=== PATIENT | male | born 1980 | race Caucasian/White ===

== ENCOUNTER 2018-08-01 08:47 | Emergency (ER) | payer MEDICAID ==
[~2018-08-01] VITALS: Ht 152.4 cm; Wt 54.1 kg
[~2018-08-01 08:47] MED LIST: [UNRECOGNIZED DRUG - REMARK]
[2018-08-01 09:07] VITALS: BP 141/76
--- NOTE | 2018-08-01 09:10 | NUR ---
37Y/M BIB C/O DIZZINESS, NAUSEA, GEN BODY ACHE X THIS MORNING; DENIES VOMITING OR DIARRHEA; PT IS AAOX4; EVEN AND STEADY GAIT; VSS; BED DOWN; ER MD AWARE AND NOTIFIED OF PT STATUS. HX; DM RX; DENIES
[2018-08-01] MEDS ORDERED: KETOROLAC 30 MG/ML VIAL IVP ONE (09:50)
[2018-08-01] MEDS ORDERED: NACL 0.9% 1,000 ML IV SCH (09:50)
[2018-08-01] MEDS ORDERED: MECLIZINE 25 MG TAB PO ONE (09:50)
--- NOTE | 2018-08-01 09:50 | NUR ---
RAD AT BEDSIDE
--- NOTE | 2018-08-01 09:54 | NUR ---
Patient being evaluated by physician at bedside.
--- NOTE | 2018-08-01 10:08 | NUR ---
LAB AT BEDSIDE
--- NOTE | 2018-08-01 10:14 | NUR ---
labs collected at iv start and handed to nael sigala
[2018-08-01 10:35] LABS: BASOPHILS % (AUTO) 0.2 % (0.0-2.0); EOSINOPHILS # (AUTO) 0.1 K/uL (0-0.4); EOSINOPHILS % (AUTO) 1.9 % (0.0-4.0); HEMATOCRIT 47.4 % (36-52); HEMOGLOBIN 16.1 g/dL (12.0-18.0); LYMPHOCYTES # (AUTO) 1.9 K/uL (2.0-11.5); LYMPHOCYTES % (AUTO) 24.3 % (20.5-51.1); MEAN CORPUSCULAR HEMOGLOBIN 31 pg (27-31); MEAN CORPUSCULAR HGB CONC 34 g/dL (33-37); MEAN CORPUSCULAR VOLUME 91.4 fL (80-94); MONOCYTES # (AUTO) 0.4 K/uL (0.8-1.0); MONOCYTES % (AUTO) 5.6 % (1.7-9.3); NEUTROPHILS # (AUTO) 5.2 K/uL (1.8-7.7); PLATELET COUNT (AUTO) 166 K/uL (140-450); RED BLOOD CELL COUNT(AUTO) 5.18 MIL/uL (4.20-6.10); RED CELL DISTRIBUTION WIDTH 12.4 % (11.6-13.7); WHITE BLOOD COUNT (AUTO) 7.7 K/uL (4.8-10.8)
[2018-08-01 10:39] LABS: APPEARANCE,URINE CLEAR (CLEAR); BILIRUBIN,URINE NEGATIVE (NEGATIVE); BLOOD, URINE NEGATIVE (NEGATIVE); COLOR,URINE YELLOW (YELLOW); LEUKOCYTE ESTERASE ,URINE NEGATIVE (NEGATIVE); NITRITE, URINE NEGATIVE (NEGATIVE); UGLUCOSE 3+ (NEGATIVE)
[2018-08-01 10:52] LABS: ANION GAP 11.5 (8-16); CARBON DIOXIDE 27.6 mmol/L (21-32); CREATININE 0.7 mg/dL (0.7-1.3); POTASSIUM 4.1 mmol/L (3.5-5.1)
[2018-08-01 10:58] LABS: TOTAL BILIRUBIN 0.5 mg/dL (0.0-1.0)
[2018-08-01 11:06] LABS: RBC,URINE 0-5 (RARE) /HPF (0-5); WBC,URINE 0-5 (RARE) /HPF (0-5)
[2018-08-01 12:48] VITALS: BP 135/70
--- NOTE | 2018-08-01 12:48 | NUR ---
Patient discharged with v/s stable. Written and verbal after care instructions given and explained. Patient alert, oriented and verbalized understanding of instructions. Ambulatory with steady gait. All questions addressed prior to discharge. ID band removed. Patient advised to follow up with PMD. Rx of METFORMON, MOTRIN, MECLIZINE given. Patient educated on indication of medication including possible reaction and side effects. Opportunity to ask questions provided and answered.
== END 2018-08-01 12:48 | disposition home or self-care (01) ==
LOC: MED 08:47
DX: E11.65 Type 2 diabetes mellitus with hyperglycemia (principal); R42 Dizziness and giddiness; F17.200 Nicotine dependence, unspecified, uncomplicated; Z88.0 Allergy status to penicillin
CPT/HCPCS: 36415; 71045; 80053; 81001; 84484; 85025; 96361; 96374; 99285; J1885; J7030; J8597; Q0092

== ENCOUNTER 2018-08-23 10:58 | Emergency (ER) | payer MEDICAID ==
[~2018-08-23] VITALS: Ht 157.5 cm; Wt 55.3 kg
[2018-08-23 11:11] VITALS: BP 109/83
--- NOTE | 2018-08-23 11:22 | NUR ---
PT AMB TO BED 8. REPORTED GIVEN TO SERVANDO BELTRÁN.
--- NOTE | 2018-08-23 11:23 | NUR ---
PATIENT PRESENTS TO ED WITH C/O N/V & HEADACHE X 10 DAYS. PATIENT STATES PAIN OF 10/10 AT THIS TIME; VSS; PATIENT POSITIONED FOR COMFORT; HOB ELEVATED; BEDRAILS UP X2; BED DOWN. ER MD MADE AWARE OF PT STATUS.
[2018-08-23] MEDS ORDERED: ONDANSETRON 4 MG ODT PO ONE (11:45)
[2018-08-23] MEDS ORDERED: KETOROLAC 60 MG/2 ML VIAL IM ONE (11:45)
[2018-08-23 12:59] VITALS: BP 112/85
--- NOTE | 2018-08-23 13:00 | NUR ---
Patient discharged with v/s stable. Written and verbal after care instructions given and explained. Patient alert, oriented and verbalized understanding of instructions. Ambulatory with steady gait. All questions addressed prior to discharge. ID band removed. Patient advised to follow up with PMD. Rx of ZOFRAN, NORCO, NAPROXEN, TAMIFLU given. Patient educated on indication of medication including possible reaction and side effects. Opportunity to ask questions provided and answered.
== END 2018-08-23 13:01 | disposition home or self-care (01) ==
LOC: MED 10:58
DX: B34.9 Viral infection, unspecified (principal); E11.9 Type 2 diabetes mellitus without complications; Z88.0 Allergy status to penicillin; F17.200 Nicotine dependence, unspecified, uncomplicated
CPT/HCPCS: 36415; 82948; 87804; 96372; 99284; J1885; Q0162

== ENCOUNTER 2019-06-20 10:36 | Emergency (ER) | payer MEDICAID ==
[~2019-06-20] VITALS: Ht 154.9 cm; Wt 54.2 kg
[2019-06-20 10:46] VITALS: BP 98/69
[2019-06-20] MEDS ORDERED: METF500T2 PO (10:51)
--- NOTE | 2019-06-20 11:11 | NUR ---
PT PRESENTS TO ED WITH C/O RIGHT SIDED KRUGER X 0700. DENIES NAUSEA/VOMITIING, NO DIZZINESS. DENIES VISUAL CHANGES. SPEECH IS CLEAR. PUPILS EQUAL AND REACTIVE TO LIGHT BILATERALLY. NO FACIAL DROOP NOTED. NO SMILE DEFICIT NOTED. PT IS ALERT AND ORIENTED TO PERSON, PLACE, TIME AND EVENT. BILATERAL HAND ACTIVITIES AIDE EQUAL. BILATERAL FOOT PUSH EQUAL. VSS. BED LOCKED AND IN LOWEST POSITION. ERMD TO EVALUATE PT.
[2019-06-20 12:12] LABS: BASOPHILS % (AUTO) 0.2 % (0.0-2.0); EOSINOPHILS # (AUTO) 0.2 K/uL (0-0.4); EOSINOPHILS % (AUTO) 1.2 % (0.0-4.0); HEMATOCRIT 47.9 % (36-52); HEMOGLOBIN 16.5 g/dL (12.0-18.0); LYMPHOCYTES % (AUTO) 15.5 % (20.5-51.1); MEAN CORPUSCULAR HEMOGLOBIN 31 pg (27-31); MEAN CORPUSCULAR HGB CONC 34 g/dL (33-37); MEAN CORPUSCULAR VOLUME 91.1 fL (80-94); MONOCYTES # (AUTO) 0.5 K/uL (0.8-1.0); MONOCYTES % (AUTO) 3.8 % (1.7-9.3); NEUTROPHILS % (AUTO) 79.3 % (42.2-75.2); PLATELET COUNT (AUTO) 184 K/uL (140-450); RED BLOOD CELL COUNT(AUTO) 5.26 MIL/uL (4.20-6.10); RED CELL DISTRIBUTION WIDTH 12.4 % (11.6-13.7); WHITE BLOOD COUNT (AUTO) 12.6 K/uL (4.8-10.8)
[2019-06-20 12:13] LABS: APPEARANCE,URINE CLEAR (CLEAR); BILIRUBIN,URINE NEGATIVE (NEGATIVE); BLOOD, URINE NEGATIVE (NEGATIVE); COLOR,URINE YELLOW (YELLOW); LEUKOCYTE ESTERASE ,URINE NEGATIVE (NEGATIVE); NITRITE, URINE NEGATIVE (NEGATIVE); UGLUCOSE 3+ (NEGATIVE)
[2019-06-20 12:26] LABS: ANION GAP 13.3 (8-16); CARBON DIOXIDE 26.7 mmol/L (21-32); CREATININE 0.8 mg/dL (0.7-1.3)
[2019-06-20 12:29] LABS: ALBUMIN 3.8 g/dL (3.4-5.0); TOTAL BILIRUBIN 0.4 mg/dL (0.0-1.0)
[2019-06-20] MEDS: NACL 0.9% 1,000 ML IV ONE (12:39)
[2019-06-20] MEDS: KETOROLAC 15 MG/ML VIAL IVP ONE (13:26)
[2019-06-20 13:58] LABS: RBC,URINE NONE SEEN /HPF (0-5); WBC,URINE NONE SEEN /HPF (0-5)
--- NOTE | 2019-06-20 14:24 | NUR ---
Patient discharged with v/s stable. Written and verbal after care instructions given and explained. Patient alert, oriented and verbalized understanding of instructions. Ambulatory with steady gait. All questions addressed prior to discharge. ID band removed. Patient advised to follow up with PMD. Rx of xanax/ naprosyn given. Patient educated on indication of medication including possible reaction and side effects. Opportunity to ask questions provided and answered.
[2019-06-20 14:25] VITALS: BP 94/62
== END 2019-06-20 14:24 | disposition home or self-care (01) ==
LOC: MED 10:36
DX: R51 Headache (principal); E11.65 Type 2 diabetes mellitus with hyperglycemia; F41.9 Anxiety disorder, unspecified; F17.210 Nicotine dependence, cigarettes, uncomplicated; Z88.0 Allergy status to penicillin; Z79.84 Long term (current) use of oral hypoglycemic drugs
CPT/HCPCS: 36415; 70450; 80053; 81001; 82948; 85025; 96361; 96374; 99284; J1885; J7030

== ENCOUNTER 2019-06-24 01:51 | Emergency (ER) | payer MEDICAID ==
[~2019-06-24] VITALS: Ht 154.9 cm; Wt 54.0 kg
[~2019-06-24 01:51] MED LIST changes: +METF500T2 PO
[2019-06-24 01:57] VITALS: BP 123/77
--- NOTE | 2019-06-24 01:59 | NUR ---
TO LOBBY A/W BED , AMBULATORY
--- NOTE | 2019-06-24 03:29 | NUR ---
AMBULATED TO ER BED 10
--- NOTE | 2019-06-24 03:30 | NUR ---
38 Y/O MALE PRESENTS TO ED C/O RIGHT ARM ACHING PAIN 08/10. PT STATES PAIN STARTED YESTERDAY. PT HAS FULL ROM WITH PAIN. BILAT STRONG RADIAL PULSES. PT DENIES TAKING ANY MEDICATIONS TO RELIEVE PAIN. PT VSS. ERMD AWARE. WILL CONTINUE TO MONITOR.
[2019-06-24] MEDS ORDERED: ONDANSETRON 4 MG/2 ML VIAL IVP ONE (03:45)
[2019-06-24] MEDS ORDERED: MORPHINE SULFATE 4 MG/ML SYR IVP ONE (03:45)
[2019-06-24] MEDS ORDERED: NACL 0.9% 1,000 ML IV ONE (03:45)
--- NOTE | 2019-06-24 03:50 | NUR ---
MEDICATED PER ERMDS ORDER , TOLERATED WELL.
[2019-06-24 04:09] LABS: BASOPHILS % (AUTO) 0.4 % (0.0-2.0); EOSINOPHILS # (AUTO) 0.2 K/uL (0-0.4); EOSINOPHILS % (AUTO) 2.1 % (0.0-4.0); HEMATOCRIT 51.9 % (36-52); HEMOGLOBIN 17.9 g/dL (12.0-18.0); LYMPHOCYTES # (AUTO) 1.9 K/uL (2.0-11.5); MEAN CORPUSCULAR HEMOGLOBIN 31 pg (27-31); MEAN CORPUSCULAR HGB CONC 34 g/dL (33-37); MEAN CORPUSCULAR VOLUME 90.9 fL (80-94); MONOCYTES # (AUTO) 0.7 K/uL (0.8-1.0); MONOCYTES % (AUTO) 8.2 % (1.7-9.3); NEUTROPHILS # (AUTO) 5.6 K/uL (1.8-7.7); NEUTROPHILS % (AUTO) 66.3 % (42.2-75.2); PLATELET COUNT (AUTO) 205 K/uL (140-450); RED BLOOD CELL COUNT(AUTO) 5.71 MIL/uL (4.20-6.10); RED CELL DISTRIBUTION WIDTH 12.4 % (11.6-13.7); WHITE BLOOD COUNT (AUTO) 8.5 K/uL (4.8-10.8)
[2019-06-24 04:17] LABS: ANION GAP 16.4 (8-16); CARBON DIOXIDE 26.4 mmol/L (21-32); CREATININE 0.8 mg/dL (0.7-1.3); POTASSIUM 3.8 mmol/L (3.5-5.1)
[2019-06-24 04:31] LABS: TOTAL BILIRUBIN 0.4 mg/dL (0.0-1.0)
[2019-06-24 05:30] VITALS: BP 125/60
--- NOTE | 2019-06-24 05:30 | NUR ---
PT DISCHARGED WITH PAPERWORK. RX NORCO, MOTRIN FOR PAIN. EDUCATED PT REGARDING MEDICATIONS AND S/E. EDUCATED PT REGARDING D/C DIAGNOSIS. PT VERBALIZED UNDERSTANDING OF TEACHING. TOLD PT TO FOLLOW UP WITH PCP AND WHEN TO RETURN TO ED. PT VSS. ALL QUESTIONS ANSWERED.
== END 2019-06-24 05:30 | disposition home or self-care (01) ==
LOC: MED 01:51
DX: R51 Headache (principal); E11.9 Type 2 diabetes mellitus without complications; Z79.84 Long term (current) use of oral hypoglycemic drugs; Z88.0 Allergy status to penicillin
CPT/HCPCS: 36415; 80053; 85025; 96374; 96375; 99283; J2270; J2405; J7030